=== PATIENT | male | born 2005 | race Caucasian/White ===

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

== ENCOUNTER 2024-09-10 20:53 | Emergency (ER) | payer BC ==
[2024-09-10 22:20] VITALS: BP 116/77; PULSE 78
[2024-09-11] MEDS: Lidocaine 1% 5 ML VIAL INJECT ONE (01:05)
[2024-09-11] MEDS: Bacitracin Oint 1 GM U/D Packet TOP ONE (01:08)
== END 2024-09-10 22:20 | disposition home or self-care (01) ==
LOC: LB.ED 20:53
DX: S61.216A Laceration without foreign body of right little finger without damage to nail, initial encounter (principal); Z79.899 Other long term (current) drug therapy; W25.XXXA Contact with sharp glass, initial encounter; Y93.89 Activity, other specified
CPT/HCPCS: 12001; 99282; 99283